=== PATIENT | female | born 1980 | race Asian ===

== ENCOUNTER 2020-01-05 20:31 | Emergency (ER) | payer MEDICAID ==
[~2020-01-05] VITALS: Ht 165.1 cm; Wt 59.0 kg
[2020-01-05 20:35] VITALS: BP_SYST 143
--- NOTE | 2020-01-05 20:35 | NUR ---
Patient triaged and placed in waiting room. VSS and patient appears in no acute distress at this time. Accompanied by FAM MEMBER, awaiting available bed, and MD notified of need for MSE.
--- NOTE | 2020-01-05 21:28 | NUR ---
Patient to ER bed 2 to gown for evaluation. Side rails up. Report given to ANDERSON AUGUST.
--- NOTE | 2020-01-05 21:40 | NUR ---
PT IS AWAKE AND ALERT, FAMILY AT BEDSIDE. PT C/O NECK PAIN RADIATING TO LEFT SHOULDER AND ARM X 6 DAYS AND DIZZYNESS. PAIN STATED 07/10. VSS. WILL CONTINUE TO MONITOR.
--- NOTE | 2020-01-05 21:50 | NUR ---
ER MD MIGUEL AT BEDSIDE EXAMINING PATIENT.
[2020-01-05 22:38] LABS: BASOPHILS # (AUTO) 0.1 K/uL (0.0-0.2); BASOPHILS % (AUTO) 0.8 % (0.0-2.0); EOSINOPHILS # (AUTO) 0.5 K/uL (0.0-0.4); EOSINOPHILS % (AUTO) 6.7 % (0.0-4.0); HEMATOCRIT 39.8 % (36-48); LYMPHOCYTES # (AUTO) 2.7 K/uL (1.0-5.5); LYMPHOCYTES % (AUTO) 37.7 % (20.5-51.5); MEAN CORPUSCULAR HEMOGLOBIN 28 pg (27-31); MEAN CORPUSCULAR HGB CONC 33 % (32-36); MEAN CORPUSCULAR VOLUME 87 fL (79.0-98.0); MONOCYTES # (AUTO) 0.7 K/uL (0.0-1.0); MONOCYTES % (AUTO) 9.3 % (1.7-9.3); NEUTROPHILS # (AUTO) 3.2 K/uL (1.8-7.7); NEUTROPHILS % (AUTO) 45.5 % (40.0-70.0); PLATELET COUNT (AUTO) 252 K/uL (130-430); RED BLOOD CELL COUNT(AUTO) 4.58 MIL/uL (4.2-6.2); RED CELL DISTRIBUTION WIDTH 13.4 % (9.0-15.0); WHITE BLOOD COUNT (AUTO) 7.1 K/uL (4.8-10.8)
[2020-01-05 22:41] LABS: CALCIUM 8.9 mg/dL (8.4-11.0); CREATININE 0.8 mg/dL (0.55-1.30); POTASSIUM 3.6 mmol/L (3.5-5.1)
[2020-01-05 22:45] LABS: ALBUMIN 3.8 g/dL (3.4-4.8); TOTAL BILIRUBIN 0.2 mg/dL (0.0-1.0)
[2020-01-05 22:55] LABS: BILIRUBIN,URINE NEGATIVE (NEGATIVE); BLOOD, URINE NEGATIVE (NEGATIVE); CLARITY/URINE CLOUDY (CLEAR); COLOR,URINE YELLOW (YELLOW); GLUCOSE,URINE NEGATIVE (NEGATIVE); KETONES,URINE NEGATIVE (NEGATIVE); LEUKOCYTE ESTERASE ,URINE NEGATIVE (NEGATIVE); NITRITE, URINE POSITIVE (NEGATIVE); PH,URINE 6.5 (5.0-8.0); PROTEIN URINE NEGATIVE (NEGATIVE); UROBILINOGEN,URINE 0.2 (0.2-1.0)
[2020-01-05 22:59] LABS: BACTERIA,URINE MANY /HPF (None Seen); RBC,URINE 0-3 /HPF (0-3); WBC,URINE 0-3 /HPF (0-3)
--- NOTE | 2020-01-05 23:00 | NUR ---
Pt resting in bed. Family at bedside. Will continue to monitor.
[2020-01-05 23:05] LABS: BARBITURATE, URINE NEGATIVE (NEG <=200); BENZODIAZEPINE, URINE NEGATIVE (NEG <=150); CANNABINOID, URINE NEGATIVE (NEG <=50); COCAINE, URINE NEGATIVE (NEG <=150); METHAMPHETAMINES SCREEN,URINE NEGATIVE (NEG <=500); OPIATE, URINE POSITIVE (NEG <=100); PHENCYCLIDINE SCREEN,URINE NEGATIVE (NEG <=25); UR TRICYCLIC ANTIDEPRESSANTS NEGATIVE (NEG <=300); URINE AMPHETAMINE NEGATIVE (NEG <=500); URINE METHADONE NEGATIVE (NEG <=200); URINE OXYCODONE SCREEN NEGATIVE (NEG <=100); URINE PROPOXYPHENE SCREEN NEGATIVE (NEG <=300)
[2020-01-06] MEDS ORDERED: HYDROcodone/ACETAMIN 7.5-325 MG TAB PO ONE (00:30)
[2020-01-06] MEDS ORDERED: NITROFURANTOIN MONOHYD/M-CRYST 100 MG CAPSULE PO ONE (00:30)
[2020-01-06 00:45] VITALS: BP_SYST 130
--- NOTE | 2020-01-06 00:45 | NUR ---
Patient given written and verbal discharge instructions and verbalizes understanding. ER MD MIGUEL discussed with patient the results and treatment provided. Patient in stable condition. ID arm band removed. Rx of [place], Robaxin, Ibuprofen given. Patient educated on pain management and to follow up with PMD. Pain Scale 0/10. Opportunity for questions provided and answered. Medication side effect fact sheet provided.
== END 2020-01-06 00:45 | disposition home or self-care (01) ==
LOC: SED 20:31
DX: S13.4XXA Sprain of ligaments of cervical spine, initial encounter (principal); E16.2 Hypoglycemia, unspecified; G47.30 Sleep apnea, unspecified; Z86.2 Personal history of diseases of the blood and blood-forming organs and certain disorders involving the immune mechanism; X50.1XXA Overexertion from prolonged static or awkward postures, initial encounter; Y93.89 Activity, other specified; Y92.89 Other specified places as the place of occurrence of the external cause; Y99.8 Other external cause status
CPT/HCPCS: 36415; 72125-TC; 80053; 80307; 81000-TC; 85025; 87086; 93005; 99285

== ENCOUNTER 2022-04-12 20:24 | Emergency (ER) | payer MEDICAID ==
[~2022-04-12] VITALS: Ht 162.6 cm; Wt 62.6 kg
[2022-04-12 20:32] VITALS: BP_SYST 112
--- NOTE | 2022-04-12 20:32 | NUR ---
PATIENT BROUGHT IN WITH COMPLAINING OF SHORTNESS OF BREATH, HEADACHE, AND GENERALIZED WEAKINESS X 3 DAYS. PATIENT SPEAKING FULL SENTENCES. VSS. NO ACUTE DISTRESS NOTED. DENIES ANY OTHER INJURES/COMPLAINTS PER PATIENT OR NOTED. PATIENT PLACED IN WAITING ROOM WITH AWAITING BED PLACEMENT.
--- NOTE | 2022-04-12 23:00 | NUR ---
patient left without being seen.
== END 2022-04-12 23:00 | disposition left against medical advice (07) ==
LOC: SED 20:24
DX: R06.02 Shortness of breath (principal); Z53.21 Procedure and treatment not carried out due to patient leaving prior to being seen by health care provider

== ENCOUNTER 2024-08-12 16:48 | Emergency (ER) | payer MEDICAID, OTHER ==
[~2024-08-12] VITALS: Ht 162.6 cm; Wt 63.5 kg
[2024-08-12 17:07] VITALS: BP_SYST 107; PULSE 92; RESP 16; TEMP 97; O2SAT 99
[2024-08-12] MEDS ORDERED: PRED20TA PO (17:50)
[2024-08-12] MEDS ORDERED: DIPH25CA83 PO (17:50)
== END 2024-08-12 17:54 | disposition home or self-care (01) ==
LOC: SED 16:48
DX: R21 Rash and other nonspecific skin eruption (principal); G47.30 Sleep apnea, unspecified
CPT/HCPCS: 99283